=== PATIENT | female | born 2000 | race Hispanic/Latino ===

== ENCOUNTER 2021-10-04 11:08 | Outpatient (CLI) | payer BC ==
[2021-10-04 13:14] LABS: BHCG - Serum Negative (NEGATIVE); Pregs Control Background? CLEAR/WHITE (CLR/WHITE); Pregs Control Bar Appear? YES (CONTROL BAR)
[2021-10-04 23:59] LABS: SARS-CoV-2 PCR by NAA Not Detected (NotDetected)
== END 2021-10-04 11:09 | disposition home or self-care (01) ==
LOC: LABBT 11:08
PROVIDERS: ATTEND Specialist
DX: Z01.812 Encounter for preprocedural laboratory examination (principal); J03.91 Acute recurrent tonsillitis, unspecified; R05.9 Cough, unspecified; Z20.822 Contact with and (suspected) exposure to COVID-19
CPT/HCPCS: 84703; 85014; U0003; U0005

== ENCOUNTER 2021-10-07 09:18 | Day surgery (SDC) | payer BC ==
[2021-10-06 09:46] VITALS: BMI 32.9
[2021-10-07] MEDS ORDERED: Ketamine 50 MG/ML (10ML VIAL) ONE (10:57)
[2021-10-07] MEDS ORDERED: fentaNYL Citrate/PF 100 MCG/2 ML SYRINGE ONE (10:57)
[2021-10-07] MEDS ORDERED: Ondansetron PF 4 MG/2 ML Vial ONE (11:24)
[2021-10-07] MEDS ORDERED: Dexamethasone 20 MG/5 ML VIAL ONE (11:24)
[2021-10-07] MEDS ORDERED: PROPOFOL 200 MG/20 ML VIAL ONE (11:24)
[2021-10-07] MEDS ORDERED: Ferric Subsulfate (ASTRINGYN) 8 GM VIAL ONE (11:42)
[2021-10-07] MEDS ORDERED: Fentanyl 100 MCG/2 ML VIAL ONE (12:20)
[2021-10-07] MEDS ORDERED: Hydrocodone-Acetamin 15 ML UDCUP ONE (13:23)
== END 2021-10-07 14:10 | disposition home or self-care (01) ==
LOC: SDC 09:18
PROVIDERS: ATTEND Specialist
PROC: 0CTPXZZ Resection of Tonsils, External Approach (ICD-10-PCS; principal; 2021-10-07)
DX: J35.01 Chronic tonsillitis (principal); J02.9 Acute pharyngitis, unspecified
CPT/HCPCS: 88304; J3010